=== PATIENT | male | born 1945 | race Caucasian/White ===

== ENCOUNTER 2016-11-17 09:47 | Inpatient (IN) | payer MEDICARE, OTHER ==
[~2016-11-17] VITALS: Ht 172.7 cm; Wt 54.2 kg
[~2016-11-17 09:47] MED LIST changes: -ANECREAM30 TP; -CELEXA 20MG20 MG/TAB PO; -LASIX 80MG TABL80 MG PO; -LIDODERM 5% PATC1 EA TP; -NEPHROCAP PO; -OMNICEF 300MG300 MG PO; -PHOS LO PO; -TEMOVATE0.052 TOP; -ZOLOFT 25MG25 MG PO
[2016-11-17 10:33] LABS: BASO % 0.4 % (0.0-2.0); EOS # 0.2 (0.0-0.7); EOS % 4.4 % (0-4.0); GRAN # 3.6 (1.4-6.5); GRAN % 73.4 % (42.2-75.2); LYMPH # 0.7 (1.2-3.4); LYMPH % 14.1 % (20.0-51.0); MEAN CELL VOLUME 89 fl (80.0-100.0); MEAN CORPUSCULAR HGB CONC 32 g/dl (33.0-37.0); MEAN PLATELET VOLUME 9.5 fl (7.4-10.4); MONO # 0.4 (0.1-0.6); MONO % 7.1 % (1.7-9.3); PLATELET COUNT 126 K/mm3 (130-400); RED BLOOD COUNT 3.36 M/mm3 (4.20-5.60); REDCELL DISTRIBUTION WIDTH-CV 14.8 % (11.5-14.5)
[2016-11-17 10:41] LABS: HEMATOCRIT 29.8 % (42.0-52.0); HEMOGLOBIN 9.6 g/dl (13.5-18.0); MEAN CORPUSCULAR HEMOGLOBIN 29 pg (27.0-31.0)
[2016-11-17 10:42] LABS: ADJUSTED CALCIUM 8.3 mg/dL (8.4-10.2); ALBUMIN 3.1 gm/dL (3.5-5.0); BILIRUBIN,TOTAL 0.8 mg/dL (0.0-1.0); CALCIUM 7.6 mg/dL (8.4-10.2); POTASSIUM 3.8 mmol/L (3.4-5.0); TOTAL PROTEIN 6.1 gm/dL (6.4-8.2)
[2016-11-17 10:45] LABS: INR 1.2 (0.8-3.0); PROTHROMBIN TIME 13.1 SECONDS (9.7-12.8)
[2016-11-17 10:48] LABS: PARTIAL THROMBOPLASTIN TIME 29.2 SECONDS (26.0-37.0)
[2016-11-17 10:49] LABS: CREATININE, serum 4.37 mg/dL (0.66-1.25)
[2016-11-17 11:19] LABS: TROPONIN-I 0.324 ng/mL (0.000-0.034)
[2016-11-17 13:56] VITALS: BP 129/54; PULSE 76; TEMP 98.3
[2016-11-17 16:43] VITALS: BP 130/60; PULSE 76; TEMP 97.5
[2016-11-17 19:58] VITALS: BP 128/64; PULSE 84; TEMP 98.4
[2016-11-17 23:17] VITALS: BP 148/61; PULSE 86; TEMP 98.3
[2016-11-18] VITALS (13 sets, daily range): BP systolic 117–152; BP diastolic 58–92; PULSE 80–98; TEMP 97.6–98.1
[2016-11-18 06:50] LABS: BASO % 0.4 % (0.0-2.0); EOS # 0.2 (0.0-0.7); EOS % 4.5 % (0-4.0); GRAN # 3.8 (1.4-6.5); GRAN % 71.4 % (42.2-75.2); LYMPH # 0.8 (1.2-3.4); LYMPH % 15.1 % (20.0-51.0); MEAN CELL VOLUME 90 fl (80.0-100.0); MEAN CORPUSCULAR HGB CONC 31 g/dl (33.0-37.0); MEAN PLATELET VOLUME 10.6 fl (7.4-10.4); MONO # 0.4 (0.1-0.6); MONO % 8.2 % (1.7-9.3); PLATELET COUNT 161 K/mm3 (130-400); RED BLOOD COUNT 3.61 M/mm3 (4.20-5.60); REDCELL DISTRIBUTION WIDTH-CV 14.9 % (11.5-14.5); WHITE BLOOD COUNT 5.4 K/mm3 (4.8-10.8)
[2016-11-18 06:57] LABS: HEMATOCRIT 32.5 % (42.0-52.0); HEMOGLOBIN 10.1 g/dl (13.5-18.0); MEAN CORPUSCULAR HEMOGLOBIN 28 pg (27.0-31.0)
[2016-11-18 07:01] LABS: ALBUMIN 3.5 gm/dL (3.5-5.0); C-REACTIVE PROTEIN 1.5 mg/dL (0.0-0.9); CALCIUM 8.4 mg/dL (8.4-10.2); PHOSPHOROUS 6.2 mg/dL (2.5-4.5); POTASSIUM 4.1 mmol/L (3.4-5.0)
[2016-11-18 08:02] LABS: CREATININE, serum 4.73 mg/dL (0.66-1.25)
[2016-11-19 00:30] VITALS: BP 142/74; PULSE 96; TEMP 99
[2016-11-19 04:09] VITALS: BP 135/66; PULSE 85
[2016-11-19 07:12] LABS: BASO % 0.4 % (0.0-2.0); EOS # 0.3 (0.0-0.7); EOS % 5.1 % (0-4.0); GRAN # 4.7 (1.4-6.5); GRAN % 70.5 % (42.2-75.2); LYMPH # 1.1 (1.2-3.4); LYMPH % 16.3 % (20.0-51.0); MEAN CELL VOLUME 88 fl (80.0-100.0); MEAN CORPUSCULAR HGB CONC 31 g/dl (33.0-37.0); MEAN PLATELET VOLUME 10.4 fl (7.4-10.4); MONO # 0.5 (0.1-0.6); MONO % 7.3 % (1.7-9.3); PLATELET COUNT 164 K/mm3 (130-400); REDCELL DISTRIBUTION WIDTH-CV 14.8 % (11.5-14.5); WHITE BLOOD COUNT 6.7 K/mm3 (4.8-10.8)
[2016-11-19 07:22] LABS: HEMATOCRIT 32.7 % (42.0-52.0); HEMOGLOBIN 10.1 g/dl (13.5-18.0); MEAN CORPUSCULAR HEMOGLOBIN 27 pg (27.0-31.0)
[2016-11-19 07:25] LABS: ALBUMIN 3.5 gm/dL (3.5-5.0); CALCIUM 7.7 mg/dL (8.4-10.2); PHOSPHOROUS 5.5 mg/dL (2.5-4.5); POTASSIUM 3.9 mmol/L (3.4-5.0)
[2016-11-19 07:47] LABS: CREATININE, serum 5.57 mg/dL (0.66-1.25)
[2016-11-19 08:00] VITALS: BP 149/61; PULSE 79
[2016-11-19 11:27] VITALS: BP 131/57; PULSE 91; TEMP 97.9
[2016-11-19 15:57] VITALS: BP 138/69; PULSE 80; TEMP 98.2
[2016-11-19 20:32] VITALS: BP 138/53; PULSE 90; TEMP 97.8
[2016-11-20] VITALS (7 sets, daily range): BP systolic 123–136; BP diastolic 56–67; PULSE 76–94; TEMP 97.6–98.1
[2016-11-20 06:53] LABS: BASO % 0.5 % (0.0-2.0); EOS # 0.3 (0.0-0.7); EOS % 5.2 % (0-4.0); GRAN # 3.9 (1.4-6.5); GRAN % 70.3 % (42.2-75.2); LYMPH # 0.9 (1.2-3.4); LYMPH % 15.4 % (20.0-51.0); MEAN CELL VOLUME 89 fl (80.0-100.0); MEAN CORPUSCULAR HGB CONC 31 g/dl (33.0-37.0); MEAN PLATELET VOLUME 11.1 fl (7.4-10.4); MONO # 0.5 (0.1-0.6); MONO % 8.1 % (1.7-9.3); PLATELET COUNT 158 K/mm3 (130-400); RED BLOOD COUNT 3.48 M/mm3 (4.20-5.60); REDCELL DISTRIBUTION WIDTH-CV 14.7 % (11.5-14.5); WHITE BLOOD COUNT 5.6 K/mm3 (4.8-10.8)
[2016-11-20 06:54] LABS: HEMATOCRIT 31.1 % (42.0-52.0); HEMOGLOBIN 9.6 g/dl (13.5-18.0); MEAN CORPUSCULAR HEMOGLOBIN 28 pg (27.0-31.0)
[2016-11-20 07:04] LABS: ALBUMIN 3.2 gm/dL (3.5-5.0); CALCIUM 7.1 mg/dL (8.4-10.2); PHOSPHOROUS 6.2 mg/dL (2.5-4.5); POTASSIUM 3.7 mmol/L (3.4-5.0)
[2016-11-20 07:26] LABS: CREATININE, serum 5.7 mg/dL (0.66-1.25)
[2016-11-21 03:35] VITALS: BP 136/83; PULSE 86; TEMP 97.8
[2016-11-21 08:32] VITALS: BP 133/56; PULSE 87; TEMP 97.8
[2016-11-21 09:55] LABS: ALBUMIN 3.2 gm/dL (3.5-5.0); CALCIUM 6.9 mg/dL (8.4-10.2); PHOSPHOROUS 6.5 mg/dL (2.5-4.5)
[2016-11-21 10:05] LABS: BASO % 0.6 % (0.0-2.0); EOS # 0.4 (0.0-0.7); EOS % 6.7 % (0-4.0); GRAN # 3.6 (1.4-6.5); GRAN % 66.2 % (42.2-75.2); LYMPH % 17.7 % (20.0-51.0); MEAN CELL VOLUME 89 fl (80.0-100.0); MEAN CORPUSCULAR HGB CONC 32 g/dl (33.0-37.0); MEAN PLATELET VOLUME 11.1 fl (7.4-10.4); MONO # 0.5 (0.1-0.6); MONO % 8.4 % (1.7-9.3); PLATELET COUNT 140 K/mm3 (130-400); RED BLOOD COUNT 3.34 M/mm3 (4.20-5.60); REDCELL DISTRIBUTION WIDTH-CV 14.4 % (11.5-14.5); WHITE BLOOD COUNT 5.4 K/mm3 (4.8-10.8)
[2016-11-21 10:13] LABS: CREATININE, serum 5.42 mg/dL (0.66-1.25)
[2016-11-21 10:19] LABS: HEMATOCRIT 29.8 % (42.0-52.0); HEMOGLOBIN 9.4 g/dl (13.5-18.0); MEAN CORPUSCULAR HEMOGLOBIN 28 pg (27.0-31.0)
[2016-11-21 11:49] VITALS: BP 110/51; PULSE 84; TEMP 97.8
[2016-11-21 16:54] VITALS: BP 124/51; PULSE 88; TEMP 97.8
[2016-11-21 20:13] VITALS: BP 127/57; PULSE 89; TEMP 97.8
[2016-11-22 03:54] VITALS: BP 111/43; PULSE 92; TEMP 98.2
[2016-11-22 06:50] LABS: BASO % 0.4 % (0.0-2.0); EOS # 0.4 (0.0-0.7); GRAN # 3.3 (1.4-6.5); GRAN % 66.6 % (42.2-75.2); LYMPH # 0.8 (1.2-3.4); LYMPH % 15.8 % (20.0-51.0); MEAN CELL VOLUME 88 fl (80.0-100.0); MEAN CORPUSCULAR HGB CONC 32 g/dl (33.0-37.0); MEAN PLATELET VOLUME 10.6 fl (7.4-10.4); MONO # 0.5 (0.1-0.6); MONO % 9.8 % (1.7-9.3); PLATELET COUNT 129 K/mm3 (130-400); REDCELL DISTRIBUTION WIDTH-CV 14.2 % (11.5-14.5)
[2016-11-22 06:59] LABS: POTASSIUM 4.4 mmol/L (3.4-5.0)
[2016-11-22 07:01] LABS: HEMATOCRIT 28.2 % (42.0-52.0); MEAN CORPUSCULAR HEMOGLOBIN 28 pg (27.0-31.0)
[2016-11-22 08:40] VITALS: BP 132/60; PULSE 91; TEMP 98
[2016-11-22] MEDS ORDERED: TENORMIN 2525 MG/TAB PO (10:49)
[2016-11-22 11:28] VITALS: BP 127/62; PULSE 85; TEMP 97.5
[2016-11-22 13:11] LABS: CALCIUM 7.1 mg/dL (8.4-10.2)
[2016-11-22 13:18] LABS: CREATININE, serum 5.4 mg/dL (0.66-1.25)
[2016-11-22 16:44] VITALS: BP 120/60; PULSE 82; TEMP 98
[2016-11-22 21:07] VITALS: BP 132/58; PULSE 82; TEMP 98.3
[2016-11-23 03:57] VITALS: BP 139/55; PULSE 89; TEMP 98.6
[2016-11-23 06:36] LABS: ALBUMIN 3.3 gm/dL (3.5-5.0); CALCIUM 7.3 mg/dL (8.4-10.2); PHOSPHOROUS 7.2 mg/dL (2.5-4.5); POTASSIUM 5.1 mmol/L (3.4-5.0)
[2016-11-23 07:37] LABS: CREATININE, serum 6.06 mg/dL (0.66-1.25)
[2016-11-23 08:19] VITALS: BP 135/65; PULSE 94; TEMP 98.3
[2016-11-23 11:41] VITALS: BP 128/53; PULSE 91; TEMP 98.3
[2016-11-23 16:22] VITALS: BP 134/68; PULSE 93; TEMP 97.9
[2016-11-23 19:49] VITALS: BP 126/54; PULSE 94; TEMP 97.9
[2016-11-24 04:31] VITALS: BP 133/61; PULSE 111; TEMP 98.6
[2016-11-24 07:41] LABS: BASO % 0.4 % (0.0-2.0); EOS # 0.3 (0.0-0.7); EOS % 3.4 % (0-4.0); GRAN # 5.5 (1.4-6.5); GRAN % 76.4 % (42.2-75.2); LYMPH # 0.8 (1.2-3.4); LYMPH % 10.6 % (20.0-51.0); MEAN CELL VOLUME 89 fl (80.0-100.0); MEAN CORPUSCULAR HGB CONC 31 g/dl (33.0-37.0); MEAN PLATELET VOLUME 11.5 fl (7.4-10.4); MONO # 0.6 (0.1-0.6); MONO % 8.8 % (1.7-9.3); PLATELET COUNT 149 K/mm3 (130-400); RED BLOOD COUNT 3.54 M/mm3 (4.20-5.60); REDCELL DISTRIBUTION WIDTH-CV 14.4 % (11.5-14.5); WHITE BLOOD COUNT 7.3 K/mm3 (4.8-10.8)
[2016-11-24 07:44] VITALS: BP 139/63; PULSE 108; TEMP 98.2
[2016-11-24 07:47] LABS: HEMATOCRIT 31.5 % (42.0-52.0); HEMOGLOBIN 9.8 g/dl (13.5-18.0); MEAN CORPUSCULAR HEMOGLOBIN 28 pg (27.0-31.0)
[2016-11-24 07:53] LABS: ADJUSTED CALCIUM 7.7 mg/dL (8.4-10.2); ALBUMIN 3.5 gm/dL (3.5-5.0); BILIRUBIN,TOTAL 0.7 mg/dL (0.0-1.0); C-REACTIVE PROTEIN 6.9 mg/dL (0.0-0.9); CALCIUM 7.3 mg/dL (8.4-10.2); PHOSPHOROUS 6.5 mg/dL (2.5-4.5); POTASSIUM 4.3 mmol/L (3.4-5.0); TOTAL PROTEIN 6.6 gm/dL (6.4-8.2)
[2016-11-24 08:02] LABS: CREATININE, serum 5.78 mg/dL (0.66-1.25)
[2016-11-24 12:01] VITALS: BP 122/70; PULSE 101
[2016-11-24 16:56] VITALS: BP 122/64; PULSE 98; TEMP 98.2
[2016-11-24 20:23] VITALS: BP 118/59; PULSE 96; TEMP 98.1
[2016-11-25] VITALS (11 sets, daily range): BP systolic 112–138; BP diastolic 52–69; PULSE 59–99; TEMP 97.8–98.7
[2016-11-25 07:58] LABS: ALBUMIN 3.2 gm/dL (3.5-5.0); PHOSPHOROUS 7.3 mg/dL (2.5-4.5); POTASSIUM 4.5 mmol/L (3.4-5.0)
[2016-11-25 08:03] LABS: CREATININE, serum 6.3 mg/dL (0.66-1.25)
[2016-11-26 04:19] VITALS: BP 142/72; PULSE 83; TEMP 98.5
[2016-11-26 07:34] VITALS: BP 130/58; PULSE 75; TEMP 97.8
[2016-11-26 08:01] LABS: ALBUMIN 3.4 gm/dL (3.5-5.0); CALCIUM 7.5 mg/dL (8.4-10.2); POTASSIUM 4.4 mmol/L (3.4-5.0)
[2016-11-26 08:19] LABS: PHOSPHOROUS 6.8 mg/dL (2.5-4.5)
[2016-11-26] MEDS ORDERED: LEVAQUIN 5500 MG/TA1 PO (08:23)
[2016-11-26 08:24] LABS: CREATININE, serum 6.64 mg/dL (0.66-1.25)
[2016-11-26] MEDS ORDERED: PREDNISONE20 MG PO (08:25)
[2016-12-18] MEDS ORDERED: ZOLOFT 25MG25 MG PO (10:42)
== END 2016-11-26 12:36 | disposition home or self-care (01) | DRG 163 ==
LOC: COL.ER 09:47 → MEDICAL 11:41
PROVIDERS: Family Medicine; Internal Medicine Nephrology; Internal Medicine Pulmonary Disease
PROC: 0B988ZX Drainage of Left Upper Lobe Bronchus, Via Natural or Artificial Opening Endoscopic, Diagnostic (ICD-10-PCS; 2016-11-18)
PROC: 0B9B8ZX Drainage of Left Lower Lobe Bronchus, Via Natural or Artificial Opening Endoscopic, Diagnostic (ICD-10-PCS; 2016-11-18)
PROC: 0B948ZX Drainage of Right Upper Lobe Bronchus, Via Natural or Artificial Opening Endoscopic, Diagnostic (ICD-10-PCS; principal; 2016-11-18 12:00)
PROC: 0B968ZZ Drainage of Right Lower Lobe Bronchus, Via Natural or Artificial Opening Endoscopic (ICD-10-PCS; 2016-11-25)
PROC: 0B9B8ZZ Drainage of Left Lower Lobe Bronchus, Via Natural or Artificial Opening Endoscopic (ICD-10-PCS; 2016-11-25)
DX: J44.0 Chronic obstructive pulmonary disease with (acute) lower respiratory infection (principal); J18.9 Pneumonia, unspecified organism; I21.4 Non-ST elevation (NSTEMI) myocardial infarction; I12.0 Hypertensive chronic kidney disease with stage 5 chronic kidney disease or end stage renal disease; N18.5 Chronic kidney disease, stage 5; J96.12 Chronic respiratory failure with hypercapnia; N17.9 Acute kidney failure, unspecified; E11.22 Type 2 diabetes mellitus with diabetic chronic kidney disease; Z79.4 Long term (current) use of insulin; D63.1 Anemia in chronic kidney disease; I27.2 Other secondary pulmonary hypertension; Z87.891 Personal history of nicotine dependence; M1A.9XX0 Chronic gout, unspecified, without tophus (tophi); M10.9 Gout, unspecified
CPT/HCPCS: A9502; J0692; J0696; J1644; J1650; J1815; J1956; J2704; J2785; J7120; J7512

== ENCOUNTER → 2016-11-17 | Outpatient (RCR) | payer MEDICARE, OTHER ==
[2016-08-19 10:03] LABS: HEMATOCRIT 28.3 % (42.0-52.0); HEMOGLOBIN 9.1 g/dl (13.5-18.0)
[2016-08-19 10:03] LABS: ALBUMIN 3.4 gm/dL (3.5-5.0); CALCIUM 6.8 mg/dL (8.4-10.2); POTASSIUM 3.8 mmol/L (3.4-5.0)
[2016-08-19 10:12] LABS: CREATININE, serum 6.09 mg/dL (0.66-1.25)
[2016-08-19 10:54] VITALS: BP 138/73; PULSE 77; TEMP 97.9
[2016-08-31 09:31] LABS: RETIC % 2.4 % (0.5-3.52)
[2016-08-31 09:34] VITALS: BP 134/78; PULSE 79; TEMP 98.7
[2016-08-31 09:38] LABS: ALBUMIN 3.7 gm/dL (3.5-5.0); CALCIUM 7.8 mg/dL (8.4-10.2); CREATININE, serum 3.81 mg/dL (0.66-1.25); HEMOGLOBIN 10.7 g/dl (13.5-18.0); PHOSPHOROUS 4.2 mg/dL (2.5-4.5); POTASSIUM 4.3 mmol/L (3.4-5.0)
[~2016-11-17] MED LIST: AFRIN NASAL SPR15 M1 NS; ALBUTEROL SULFAT3 M3 IH; ALBUTEROL1.25 MG/3 IH; AMBIEN CR 12.12.5 MG PO; ANECREAM30 TP; ASPIRIN 81M81 MG/TA2 PO; ASPIRIN E.C. 8181 MG PO; ATROVENTNS0.03% NS; B-121000 MCG PO; CALCITRIOL PO; CELEXA 20MG20 MG/TAB PO; COMPAZINE 5MG TA5 MG PO; COZAAR 25MG25 MG/TAB PO; COZAAR 50MG50 MG/TAB PO; DALIRESP500 MCG PO; DOXYCYCLINE 10100 MG PO; DRISTAN 12-HOUR15 ML NS; FLOMAX 0.40.4 MG/CAP PO; FLONASE NASAL S16 GM NS; FLOVENT DI50 MCG/Act IH; IPRATROPIUM BROM3 M1 IH; LANTUS100 U/ML SC; LANTUS100 U/ML SQ; LASIX 20MG TABL20 MG PO; LASIX 40MG TABL40 MG PO; LASIX 80MG TABL80 MG PO; LASIX ORAL S10 MG/ML; LEVAQUIN 5500 MG/TA1 PO; LEVAQUIN 750MG750 M1 PO; LIDODERM 5% PATC1 EA TP; LIORESAL 1010 MG/TAB PO; NEPHROCAP PO; NEURONTIN100 MG/CAP PO; NORCO 325 MG-101 TAB PO; NORMAL SALINE F10 ML IV; NOVOLOG FLEX100 U/ML SC; OMNICEF 300MG300 MG PO; ORAMORPH SR15 MG PO; PEN-VEE K500 MG PO; PHOS LO PO; PHOSLO667 MG PO; PLAQUENIL 200M200 MG PO; PREDNISONE10 MG PO; PREDNISONE20 MG PO; PRILOSEC 20MG20 MG PO; PRILOTC PO; PRINIVIL5 MG PO; PROAIR HFA0.09 MG/AC IH; PROCARDIA XL 3030 MG PO; REFRESH 1 ML1 ML OP; REFRESH 1 ML1 ML OU; RT ADVAIR 528 DISKUS IH; RT SPIRIVA18 MCG IH; SEREVENT IH; TEARS-ARTIFICIA15 ML OP; TEMOVATE0.052 TOP; TENORMIN 2525 MG/TAB PO; TENORMIN 5050 MG/TAB PO; VITAMIN B1225 MCG PO; XALATAN EYE DROPS OD; XALATAN EYE DROPS OU; ZITHROMAX 250M250 MG PO; ZOLOFT 25MG25 MG PO; ZYLOPRIM 100MG100 MG PO; [UNRECOGNIZED DRUG - CODE] IV
[2016-11-17 11:18] LABS: ALBUMIN 3.2 gm/dL (3.5-5.0); CALCIUM 7.7 mg/dL (8.4-10.2); POTASSIUM 3.8 mmol/L (3.4-5.0)
[2016-11-17 11:28] LABS: CREATININE, serum 4.46 mg/dL (0.66-1.25)
[2016-11-17 11:54] LABS: PHOSPHOROUS 4.6 mg/dL (2.5-4.5)
== END | disposition still patient (30) ==
LOC: EUO
PROVIDERS: Internal Medicine Nephrology
DX: Z45.2 Encounter for adjustment and management of vascular access device (principal)
CPT/HCPCS: J1644

== ENCOUNTER 2016-12-14 12:00 | Outpatient (CLI) | payer MEDICARE, OTHER ==
[2016-12-14 12:38] VITALS: BP 134/55; PULSE 82; TEMP 98.3
[2016-12-14 12:42] LABS: POTASSIUM 3.5 mmol/L (3.4-5.0)
[2016-12-14 12:45] LABS: CALCIUM 5.3 mg/dL (8.4-10.2); CREATININE, serum 4.99 mg/dL (0.66-1.25)
[2016-12-18] MEDS ORDERED: ZOLOFT 25MG25 MG PO (10:42)
== END 2016-12-14 18:00 | disposition home or self-care (01) ==
LOC: EUO 12:00
PROVIDERS: Internal Medicine Nephrology
DX: Z45.2 Encounter for adjustment and management of vascular access device (principal); N18.4 Chronic kidney disease, stage 4 (severe)
CPT/HCPCS: J1644

== ENCOUNTER → 2016-12-18 | Outpatient (CLI) | payer MEDICARE, OTHER ==
[~2016-12-18] MED LIST changes: +ANECREAM30 TP; +CELEXA 20MG20 MG/TAB PO; +LASIX 80MG TABL80 MG PO; +LIDODERM 5% PATC1 EA TP; +NEPHROCAP PO; +OMNICEF 300MG300 MG PO; +PHOS LO PO; +TEMOVATE0.052 TOP; +ZOLOFT 25MG25 MG PO
[2016-12-18 10:45] VITALS: BP 137/57; PULSE 76; TEMP 97.9
[2016-12-18 11:18] LABS: ALBUMIN 3.8 gm/dL (3.5-5.0); CALCIUM 6.4 mg/dL (8.4-10.2); PHOSPHOROUS 6.9 mg/dL (2.5-4.5); POTASSIUM 3.9 mmol/L (3.4-5.0)
[2016-12-18 11:28] LABS: CREATININE, serum 5.32 mg/dL (0.66-1.25)
== END ==
LOC: EUO 09:56
PROVIDERS: Internal Medicine Nephrology
DX: N18.5 Chronic kidney disease, stage 5 (principal); Z45.2 Encounter for adjustment and management of vascular access device
CPT/HCPCS: J1644

== ENCOUNTER → 2017-01-04 | Outpatient (CLI) | payer MEDICARE, OTHER ==
[2017-01-04 10:00] VITALS: BP 122/61; PULSE 75; TEMP 97.8
[2017-01-04 10:27] LABS: BASO % 0.4 % (0.0-2.0); EOS # 0.2 (0.0-0.7); EOS % 2.9 % (0-4.0); GRAN # 4.1 (1.4-6.5); GRAN % 74.5 % (42.2-75.2); LYMPH # 0.8 (1.2-3.4); MEAN CELL VOLUME 86 fl (80.0-100.0); MEAN CORPUSCULAR HGB CONC 32 g/dl (33.0-37.0); MEAN PLATELET VOLUME 9.9 fl (7.4-10.4); MONO # 0.4 (0.1-0.6); MONO % 7.8 % (1.7-9.3); PLATELET COUNT 179 K/mm3 (130-400); RED BLOOD COUNT 3.42 M/mm3 (4.20-5.60); REDCELL DISTRIBUTION WIDTH-CV 14.6 % (11.5-14.5); WHITE BLOOD COUNT 5.5 K/mm3 (4.8-10.8)
[2017-01-04 10:28] LABS: HEMATOCRIT 29.5 % (42.0-52.0); HEMOGLOBIN 9.5 g/dl (13.5-18.0); MEAN CORPUSCULAR HEMOGLOBIN 28 pg (27.0-31.0)
[2017-01-04 10:33] LABS: CALCIUM 7.8 mg/dL (8.4-10.2); POTASSIUM 4.2 mmol/L (3.4-5.0)
[2017-01-04 10:35] LABS: CREATININE, serum 5.64 mg/dL (0.66-1.25)
[2017-01-04 23:22] LABS: ALBUMIN/CREATININE RATIO URINE 1387.7 mg/g (0.0-29.0)
== END ==
LOC: EUO 09:08
PROVIDERS: Internal Medicine Nephrology
DX: N18.4 Chronic kidney disease, stage 4 (severe) (principal); D63.1 Anemia in chronic kidney disease; R80.9 Proteinuria, unspecified; Z45.2 Encounter for adjustment and management of vascular access device
CPT/HCPCS: J1644

== ENCOUNTER 2017-01-07 11:08 | Inpatient (IN) | payer MEDICARE, OTHER ==
[~2017-01-07] VITALS: Ht 172.7 cm; Wt 93.9 kg
[~2017-01-07 11:08] MED LIST changes: -ANECREAM30 TP; -CELEXA 20MG20 MG/TAB PO; -LASIX 80MG TABL80 MG PO; -LIDODERM 5% PATC1 EA TP; -NEPHROCAP PO; -OMNICEF 300MG300 MG PO; -PHOS LO PO; -TEMOVATE0.052 TOP
[2017-01-07 12:05] LABS: BASO % 0.6 % (0.0-2.0); EOS # 0.1 (0.0-0.7); EOS % 0.9 % (0-4.0); GRAN # 4.3 (1.4-6.5); GRAN % 79.5 % (42.2-75.2); LYMPH # 0.5 (1.2-3.4); LYMPH % 9.3 % (20.0-51.0); MEAN CELL VOLUME 86 fl (80.0-100.0); MEAN CORPUSCULAR HGB CONC 32 g/dl (33.0-37.0); MEAN PLATELET VOLUME 10.5 fl (7.4-10.4); MONO # 0.5 (0.1-0.6); MONO % 9.1 % (1.7-9.3); PLATELET COUNT 174 K/mm3 (130-400); RED BLOOD COUNT 3.39 M/mm3 (4.20-5.60); REDCELL DISTRIBUTION WIDTH-CV 14.8 % (11.5-14.5); WHITE BLOOD COUNT 5.4 K/mm3 (4.8-10.8)
[2017-01-07 12:06] LABS: ADJUSTED CALCIUM 8.6 mg/dL (8.4-10.2); ALBUMIN 3.5 gm/dL (3.5-5.0); BILIRUBIN,TOTAL 0.8 mg/dL (0.0-1.0); CALCIUM 8.2 mg/dL (8.4-10.2); HEMATOCRIT 29.3 % (42.0-52.0); HEMOGLOBIN 9.4 g/dl (13.5-18.0); MEAN CORPUSCULAR HEMOGLOBIN 28 pg (27.0-31.0); POTASSIUM 4.6 mmol/L (3.4-5.0); TOTAL PROTEIN 6.5 gm/dL (6.4-8.2)
[2017-01-07 12:09] LABS: CREATININE, serum 5.53 mg/dL (0.66-1.25)
[2017-01-07 12:16] LABS: TROPONIN-I 0.023 ng/mL (0.000-0.034)
[2017-01-07 12:18] LABS: INR 1.3 (0.8-3.0); PROTHROMBIN TIME 14.2 SECONDS (9.7-12.8)
[2017-01-07 12:25] LABS: ARTERIAL BLD GAS O2 SATURATION 91.4 % (92-100); ARTERIAL BLD GAS TCO2 CT 20.2; ARTERIAL BLOOD GAS BASE EXCESS -7.8 (-2-2); ARTERIAL BLOOD GAS HCO3 18.9 meq/L (22-26); ARTERIAL BLOOD GAS PHT 7.25 C (7.35-7.45); ARTERIAL BLOOD GAS PO2 64.9 mmHg (80-100); ARTERIAL BLOOD GAS PO2T 68.6 (80-100); ARTERIAL BLOOD GAS pH 7.26 (7.35-7.45); OXYHEMOGLOBIN 90.3 %
[2017-01-07 12:26] LABS: ALLEN TEST NO; ATS? YES
[2017-01-07 14:51] VITALS: BP 167/73; PULSE 93; TEMP 98.6
[2017-01-07 19:21] VITALS: BP 155/68; PULSE 94; TEMP 98.4
[2017-01-08] VITALS (7 sets, daily range): BP systolic 129–168; BP diastolic 59–79; PULSE 83–90; TEMP 98–99.4
[2017-01-08] MEDS ORDERED: CELEXA 20MG20 MG/TAB PO (13:50)
[2017-01-09 03:49] VITALS: BP 124/57; PULSE 72; TEMP 97.9
[2017-01-09 07:55] VITALS: BP 126/64; PULSE 77; TEMP 98.1
[2017-01-09 12:38] VITALS: BP 110/59; PULSE 81; TEMP 97.8
[2017-01-09 14:05] LABS: CALCIUM 8.5 mg/dL (8.4-10.2); MAGNESIUM 1.7 mg/dL (1.6-2.3); POTASSIUM 4.5 mmol/L (3.4-5.0)
[2017-01-09 14:13] LABS: CREATININE, serum 5.93 mg/dL (0.66-1.25)
[2017-01-09 17:25] VITALS: BP 124/52; PULSE 89; TEMP 97.1
[2017-01-09 20:47] VITALS: BP 130/63; PULSE 85; TEMP 98.1
[2017-01-09 23:57] VITALS: BP 109/44; PULSE 86; TEMP 98.3
[2017-01-10 05:57] VITALS: BP 122/57; PULSE 76; TEMP 97.7
[2017-01-10 12:06] VITALS: BP 126/76; PULSE 80; TEMP 98
[2017-01-10 16:32] VITALS: BP 128/66; PULSE 84; TEMP 97.7
[2017-01-10 20:01] VITALS: BP 100/66; PULSE 91; TEMP 98.2
[2017-01-11 00:49] VITALS: PULSE 84
[2017-01-11 03:10] VITALS: BP 116/50; PULSE 76; TEMP 98.4
[2017-01-11 07:38] VITALS: BP 124/60; PULSE 77; TEMP 98.1
[2017-01-11 11:43] VITALS: BP 101/52; PULSE 76; TEMP 97.6
[2017-01-11 16:14] VITALS: BP 133/47; PULSE 49; TEMP 97.9
[2017-01-11 18:49] LABS: BASO % 0.4 % (0.0-2.0); EOS # 0.2 (0.0-0.7); EOS % 3.4 % (0-4.0); GRAN # 3.3 (1.4-6.5); GRAN % 71.4 % (42.2-75.2); LYMPH % 20.3 % (20.0-51.0); MEAN CELL VOLUME 83 fl (80.0-100.0); MEAN CORPUSCULAR HGB CONC 33 g/dl (33.0-37.0); MEAN PLATELET VOLUME 10.5 fl (7.4-10.4); MONO # 0.2 (0.1-0.6); MONO % 3.9 % (1.7-9.3); PLATELET COUNT 164 K/mm3 (130-400); RED BLOOD COUNT 3.56 M/mm3 (4.20-5.60); REDCELL DISTRIBUTION WIDTH-CV 14.6 % (11.5-14.5); WHITE BLOOD COUNT 4.7 K/mm3 (4.8-10.8)
[2017-01-11 18:53] LABS: HEMATOCRIT 29.7 % (42.0-52.0); HEMOGLOBIN 9.7 g/dl (13.5-18.0); MEAN CORPUSCULAR HEMOGLOBIN 27 pg (27.0-31.0)
[2017-01-11 19:06] LABS: ALBUMIN 3.7 gm/dL (3.5-5.0); CALCIUM 7.8 mg/dL (8.4-10.2); PHOSPHOROUS 4.9 mg/dL (2.5-4.5); POTASSIUM 3.7 mmol/L (3.4-5.0)
[2017-01-11 19:08] LABS: CREATININE, serum 5.14 mg/dL (0.66-1.25)
[2017-01-11 22:31] VITALS: BP 117/54; PULSE 79; TEMP 98
[2017-01-11 23:29] LABS: HEPATITIS B CORE AB,TOTAL Negative (()); HEPATITIS B SURFACE AB-QL Negative (())
[2017-01-12 00:03] VITALS: BP 123/63; PULSE 82; TEMP 98.5
[2017-01-12 11:15] VITALS: BP 115/60; PULSE 77; TEMP 96.9
[2017-01-12 16:00] VITALS: BP 131/52; PULSE 79; TEMP 98.5
[2017-01-12 19:19] VITALS: BP 125/53; PULSE 84; TEMP 99.1
[2017-01-12 23:21] VITALS: BP 124/52; PULSE 85
[2017-01-13 03:20] VITALS: BP 137/67; PULSE 73; TEMP 98.3
[2017-01-13 07:26] VITALS: BP 129/60; PULSE 75; TEMP 98.4
[2017-01-13 11:34] VITALS: BP 127/59; PULSE 86; TEMP 97.3
[2017-01-13 16:04] VITALS: BP 130/57; PULSE 91; TEMP 97.7
[2017-01-13 19:24] VITALS: BP 123/55; PULSE 84; TEMP 98
[2017-01-13 23:15] VITALS: BP 128/60; PULSE 75; TEMP 97.8
[2017-01-14 03:11] VITALS: BP 128/64; PULSE 78; TEMP 97.7
[2017-01-14 07:13] LABS: ALBUMIN 3.4 gm/dL (3.5-5.0); CALCIUM 7.9 mg/dL (8.4-10.2); PHOSPHOROUS 5.8 mg/dL (2.5-4.5); POTASSIUM 3.7 mmol/L (3.4-5.0)
[2017-01-14 07:29] VITALS: BP 141/57; PULSE 76; TEMP 98.3
[2017-01-14 08:04] LABS: CREATININE, serum 5.13 mg/dL (0.66-1.25)
[2017-01-14 11:43] VITALS: BP 118/61; PULSE 81; TEMP 98.2
[2017-01-14 15:23] VITALS: BP 140/55; PULSE 87; TEMP 97.9
[2017-01-14 19:22] VITALS: BP 130/60; PULSE 99; TEMP 98.5
[2017-01-14 22:51] VITALS: BP 131/62; PULSE 74; TEMP 98.2
[2017-01-15 03:20] VITALS: BP 126/63; PULSE 82; TEMP 97.6
[2017-01-15 07:28] VITALS: BP 118/59; PULSE 74; TEMP 98.6
[2017-01-15 08:51] LABS: ALBUMIN 3.5 gm/dL (3.5-5.0); CALCIUM 8.1 mg/dL (8.4-10.2); PHOSPHOROUS 6.5 mg/dL (2.5-4.5); POTASSIUM 3.9 mmol/L (3.4-5.0)
[2017-01-15 08:58] LABS: CREATININE, serum 5.37 mg/dL (0.66-1.25)
[2017-01-15 11:43] VITALS: BP 161/63; PULSE 67; TEMP 97.8
[2017-01-15] MEDS ORDERED: LASIX 80MG TABL80 MG PO (13:57)
[2017-01-15] MEDS ORDERED: PHOS LO PO (14:00)
== END 2017-01-15 15:47 | disposition home or self-care (01) | DRG 640 ==
LOC: COL.ER 11:08 → MEDICAL 13:11
PROVIDERS: Emergency Medicine; Internal Medicine; Internal Medicine Nephrology; Internal Medicine Pulmonary Disease
PROC: 5A1D60Z (ICD-10-PCS; principal; 2017-01-11)
DX: E87.70 Fluid overload, unspecified (principal); N18.6 End stage renal disease; I13.2 Hypertensive heart and chronic kidney disease with heart failure and with stage 5 chronic kidney disease, or end stage renal disease; N17.9 Acute kidney failure, unspecified; I50.32 Chronic diastolic (congestive) heart failure; J44.0 Chronic obstructive pulmonary disease with (acute) lower respiratory infection; J96.12 Chronic respiratory failure with hypercapnia; J96.11 Chronic respiratory failure with hypoxia; E11.22 Type 2 diabetes mellitus with diabetic chronic kidney disease; J20.9 Acute bronchitis, unspecified; G47.33 Obstructive sleep apnea (adult) (pediatric); K21.9 Gastro-esophageal reflux disease without esophagitis; M10.9 Gout, unspecified; D63.1 Anemia in chronic kidney disease; Z99.81 Dependence on supplemental oxygen; Z87.891 Personal history of nicotine dependence; Z79.84 Long term (current) use of oral hypoglycemic drugs
CPT/HCPCS: 99222-AI; 99223-AI; 99232-AI; 99239; J0696; J0881-EA-EB-EC; J0882; J1644; J1815; J1940; J2916; J2930

== ENCOUNTER 2017-02-11 09:44 | Outpatient (CLI) | payer MEDICARE, OTHER ==
[~2017-02-11] VITALS: Ht 172.7 cm; Wt 81.0 kg
[~2017-02-11 09:44] MED LIST changes: +CELEXA 20MG20 MG/TAB PO; +LASIX 80MG TABL80 MG PO; +PHOS LO PO
[2017-02-11 10:25] VITALS: BP 100/53; PULSE 60; TEMP 98.1
[2017-02-11] MEDS ORDERED: TEMOVATE0.052 TOP (11:43)
[2017-02-11] MEDS ORDERED: ANECREAM30 TP (11:45)
[2017-02-11] MEDS ORDERED: LIDODERM 5% PATC1 EA TP (11:46)
[2017-02-11] MEDS ORDERED: NEPHROCAP PO (11:47)
== END 2017-02-11 11:51 | disposition home or self-care (01) ==
LOC: COL.RAD 09:44 → EUO 09:44
DX: J40 Bronchitis, not specified as acute or chronic (principal); R91.8 Other nonspecific abnormal finding of lung field; Z45.2 Encounter for adjustment and management of vascular access device
CPT/HCPCS: J1644

== ENCOUNTER 2017-04-09 16:00 | Inpatient (IN) | payer MEDICARE, OTHER ==
[~2017-04-09] VITALS: Ht 170.2 cm; Wt 79.2 kg
[~2017-04-09 16:00] MED LIST changes: +ANECREAM30 TP; +LIDODERM 5% PATC1 EA TP; +NEPHROCAP PO; +TEMOVATE0.052 TOP
[2017-04-09 17:07] VITALS: BP 142/66; PULSE 70; TEMP 98.8
[2017-04-09] MEDS ORDERED: LASIX 80MG TABL80 MG PO (17:14)
[2017-04-09] MEDS ORDERED: PHOSLO667 MG PO (17:14)
[2017-04-09 17:52] LABS: ARTERIAL BLD GAS O2 SATURATION 41.3 % (92-100); ARTERIAL BLD GAS TCO2 CT 34.6; ARTERIAL BLOOD GAS BASE EXCESS 5.7 (-2-2); ARTERIAL BLOOD GAS HCO3 32.7 meq/L (22-26); ARTERIAL BLOOD GAS PHT 7.35 C (7.35-7.45); ARTERIAL BLOOD GAS pH 7.35 (7.35-7.45); OXYHEMOGLOBIN 40.4 %
[2017-04-09 17:59] LABS: ARTERIAL BLOOD GAS PO2 22.4 mmHg (80-100); ARTERIAL BLOOD GAS PO2T 22.4 (80-100)
[2017-04-09 18:01] LABS: ALLEN TEST YES; ALLENS TEST RESULT PASS; ATS? YES
[2017-04-09 19:43] VITALS: BP 124/58; PULSE 81; TEMP 98.6
[2017-04-09 20:39] LABS: BASO % 0.4 % (0.0-2.0); EOS # 0.1 (0.0-0.7); EOS % 2.5 % (0-4.0); GRAN # 4.5 (1.4-6.5); GRAN % 87.6 % (42.2-75.2); HEMATOCRIT 26.7 % (42.0-52.0); HEMOGLOBIN 9.1 g/dl (13.5-18.0); LYMPH # 0.3 (1.2-3.4); LYMPH % 6.2 % (20.0-51.0); MEAN CELL VOLUME 90 fl (80.0-100.0); MEAN CORPUSCULAR HEMOGLOBIN 31 pg (27.0-31.0); MEAN CORPUSCULAR HGB CONC 34 g/dl (33.0-37.0); MEAN PLATELET VOLUME 9.5 fl (7.4-10.4); MONO # 0.2 (0.1-0.6); MONO % 2.9 % (1.7-9.3); PLATELET COUNT 114 K/mm3 (130-400); RED BLOOD COUNT 2.98 M/mm3 (4.20-5.60); REDCELL DISTRIBUTION WIDTH-CV 13.5 % (11.5-14.5); WHITE BLOOD COUNT 5.2 K/mm3 (4.8-10.8)
[2017-04-09 20:48] LABS: ADJUSTED CALCIUM 8.7 mg/dL (8.4-10.2); ALBUMIN 3.8 gm/dL (3.5-5.0); BILIRUBIN,TOTAL 0.8 mg/dL (0.0-1.0); CALCIUM 8.5 mg/dL (8.4-10.2); CREATININE, serum 3.19 mg/dL (0.66-1.25); POTASSIUM 3.4 mmol/L (3.4-5.0); TOTAL PROTEIN 6.7 gm/dL (6.4-8.2)
[2017-04-09 23:20] VITALS: BP 147/72; PULSE 69; TEMP 97.6
[2017-04-10 04:26] VITALS: BP 147/75; PULSE 77; TEMP 97.9
[2017-04-10 09:32] VITALS: BP 139/81; PULSE 75; TEMP 98.1
[2017-04-10 12:04] VITALS: BP 151/65; PULSE 75; TEMP 98
[2017-04-10 15:47] VITALS: BP 124/63; PULSE 74; TEMP 97.9
[2017-04-10 21:11] VITALS: BP 128/59; PULSE 75; TEMP 98.3
[2017-04-11] VITALS (7 sets, daily range): BP systolic 122–145; BP diastolic 58–69; PULSE 69–90; TEMP 97.7–98.4
[2017-04-12 02:55] VITALS: BP 132/62; PULSE 97; TEMP 97.2
[2017-04-12 07:20] LABS: MEAN CELL VOLUME 92 fl (80.0-100.0); MEAN CORPUSCULAR HGB CONC 33 g/dl (33.0-37.0); MEAN PLATELET VOLUME 10.2 fl (7.4-10.4); PLATELET COUNT 145 K/mm3 (130-400); RED BLOOD COUNT 2.81 M/mm3 (4.20-5.60); REDCELL DISTRIBUTION WIDTH-CV 13.6 % (11.5-14.5); WHITE BLOOD COUNT 7.6 K/mm3 (4.8-10.8)
[2017-04-12 07:24] LABS: HEMATOCRIT 25.7 % (42.0-52.0); HEMOGLOBIN 8.5 g/dl (13.5-18.0); MEAN CORPUSCULAR HEMOGLOBIN 30 pg (27.0-31.0)
[2017-04-12 07:29] VITALS: BP 120/58; PULSE 73; TEMP 97.9
[2017-04-12 07:34] LABS: CALCIUM 7.8 mg/dL (8.4-10.2); POTASSIUM 3.9 mmol/L (3.4-5.0)
[2017-04-12 08:04] LABS: CREATININE, serum 6.53 mg/dL (0.66-1.25)
[2017-04-12 11:15] VITALS: BP 124/69; PULSE 65; TEMP 97.6
[2017-04-12] MEDS ORDERED: PREDNISONE20 MG PO (16:53)
[2017-04-12] MEDS ORDERED: LANTUS100 U/ML SC (16:54)
[2017-04-12] MEDS ORDERED: OMNICEF 300MG300 MG PO (16:58)
== END 2017-04-12 18:47 | disposition home or self-care (01) | DRG 190 ==
LOC: MEDICAL 16:00
PROVIDERS: Internal Medicine
PROC: 5A1D00Z (ICD-10-PCS; principal; 2017-04-12)
DX: J44.1 Chronic obstructive pulmonary disease with (acute) exacerbation (principal); N18.6 End stage renal disease; E43 Unspecified severe protein-calorie malnutrition; I12.0 Hypertensive chronic kidney disease with stage 5 chronic kidney disease or end stage renal disease; J96.12 Chronic respiratory failure with hypercapnia; J96.11 Chronic respiratory failure with hypoxia; E11.22 Type 2 diabetes mellitus with diabetic chronic kidney disease; Z99.2 Dependence on renal dialysis; I27.2 Other secondary pulmonary hypertension; Z87.891 Personal history of nicotine dependence; D63.1 Anemia in chronic kidney disease; Z79.4 Long term (current) use of insulin
CPT/HCPCS: 99223-AI; 99232-AI; 99239; J0696; J1644; J1815; J2920; J7512